=== PATIENT | male | born 1965 | race Caucasian/White ===

== ENCOUNTER → 2016-08-09 | Outpatient (REF) | payer BC, OTHER ==
[~2016-08-09] MED LIST: ALLE25CA OR; BISA10SU2 PR; BISA5TA OR; CALC12502 OR; COLA100C2 OR; ECOT325T5 OR; FERR325T OR; GLUC500T3 OR; LISI20TA5 OR; MILKSUS OR; OXYC10TA97 OR; PAIN325T OR; PERC5TAB8 OR; PERC7.5T8 OR; SENN8.6T5 OR; benadryl TOP; gleevec OR; kenalog TOP; xarelto OR
== END ==
LOC: M LAB REF 12:21
PROVIDERS: ATTEND Internal Medicine Medical Oncology
DX: C92.10 Chronic myeloid leukemia, BCR/ABL-positive, not having achieved remission (principal)

== ENCOUNTER → 2016-09-17 | Outpatient (CLI) | payer BC, OTHER ==
[~2016-09-17] VITALS: Ht 182.9 cm; Wt 96.2 kg
[~2016-09-17] MED LIST changes: +LIDOCAINE 2% INJ 100 MG/5 ML SDV (FOR ANES.) As Ordered ONE; +LISI40TAB PO; +NS 1,000 ML IV SCH; +PROPOFOL 200 MG/20 ML VIAL As Ordered ONE; +TASI150C PO
--- NOTE | 2016-09-17 08:02 | ROOR ---
Patient Name: Dusty Arredondo Procedure Date: 09/17/2016 7:29 AM Date of : 1965 Age: 51 Room: [facility] Gender: Male Note Status: Finalized Procedure: Colonoscopy to Cecum + Biopsy Polypectomy Indications: Screening for colorectal malignant neoplasm Providers: Ap Kincaid MD Referring MD: BONITA HERMOSILLO MD Requesting Provider: Medicines: Monitored Anesthesia Care Complications: No immediate complications. Procedure: Pre-Anesthesia Assessment: - The heart rate, respiratory rate, oxygen saturations, blood pressure, adequacy of pulmonary ventilation, and response to care were monitored throughout the procedure. The Colonoscope was introduced through the anus and advanced to the cecum, identified by appendiceal orifice and ileocecal valve. The colonoscopy was performed without difficulty. The patient tolerated the procedure well. The quality of the bowel preparation was excellent. Findings: The perianal and digital rectal examinations were normal. Non-bleeding internal hemorrhoids were found during retroflexion. The hemorrhoids were small and Grade I (internal hemorrhoids that do not prolapse). Scattered small-mouthed diverticula were found in the recto-sigmoid colon, sigmoid colon and descending colon. A medium polyp was found in the cecum. The polyp was carpet-like. The polyp was removed with a jumbo cold forceps. Resection and retrieval were complete. The exam was otherwise without abnormality on direct and retroflexion views. Impression: - Non-bleeding internal hemorrhoids. - Diverticulosis in the recto-sigmoid colon, in the sigmoid colon and in the descending colon. - One medium polyp in the cecum, removed with a jumbo cold forceps. Resected and retrieved. - The exam was otherwise normal to the cecum. Recommendation: - Patient has a contact number available for emergencies. The signs and symptoms of potential delayed complications were discussed with the patient. Return to normal activities tomorrow. Written discharge instructions were provided to the patient. - High fiber diet. - Discharge patient to home. - Continue present medications. - Await pathology results. - Telephone GI clinic for pathology results in 1 week. - Repeat colonoscopy in 1 year for surveillance based on pathology results. - Return to referring physician. - The findings and recommendations were discussed with the patient's family. Ap Kincaid MD Ap Kincaid MD 09/17/2016 8:01:40 AM This report has been signed electronically. Number of Addenda: 0 Note Initiated On: 09/17/2016 7:29 AM Estimated Blood Loss: Estimated blood loss: none.
[2016-09-17 08:20] VITALS: BP 135/96
== END | disposition home or self-care (01) ==
LOC: M OPP 06:45
PROVIDERS: ATTEND Internal Medicine Gastroenterology
DX: Z12.11 Encounter for screening for malignant neoplasm of colon (principal); D12.0 Benign neoplasm of cecum; K64.0 First degree hemorrhoids; K57.30 Diverticulosis of large intestine without perforation or abscess without bleeding; I10 Essential (primary) hypertension; C92.90 Myeloid leukemia, unspecified, not having achieved remission; Z92.21 Personal history of antineoplastic chemotherapy; F17.220 Nicotine dependence, chewing tobacco, uncomplicated; Z79.899 Other long term (current) drug therapy

== ENCOUNTER → 2016-11-10 | Outpatient (REF) | payer OTHER, BC ==
[~2016-11-10] MED LIST changes: -LIDOCAINE 2% INJ 100 MG/5 ML SDV (FOR ANES.) As Ordered ONE; -NS 1,000 ML IV SCH; -PROPOFOL 200 MG/20 ML VIAL As Ordered ONE
== END ==
LOC: M LAB REF 17:23
PROVIDERS: ATTEND Internal Medicine Medical Oncology
DX: C92.11 Chronic myeloid leukemia, BCR/ABL-positive, in remission (principal)

== ENCOUNTER → 2017-03-03 | Outpatient (REF) | payer OTHER, BC ==
[2017-03-03 14:02] LABS: AMYLASE 42 U/L (25-115)
== END ==
LOC: M LAB REF 08:51
PROVIDERS: ATTEND Internal Medicine Medical Oncology
DX: C92.10 Chronic myeloid leukemia, BCR/ABL-positive, not having achieved remission (principal)

== ENCOUNTER → 2017-08-10 | Outpatient (REF) | payer OTHER, BC ==
[2017-08-10 10:32] LABS: AMYLASE 57 U/L (25-115)
[2017-08-10 10:32] LABS: LIPASE 100 U/L (73-393)
== END ==
LOC: M LAB REF 09:51
DX: C92.90 Myeloid leukemia, unspecified, not having achieved remission (principal)

== ENCOUNTER → 2017-09-19 | Outpatient (REF) | payer OTHER, BC ==
[2017-09-19 14:04] LABS: LIPASE 93 U/L (73-393)
[2017-09-19 14:04] LABS: AMYLASE 53 U/L (25-115)
== END ==
LOC: M LAB REF 13:07
DX: C92.11 Chronic myeloid leukemia, BCR/ABL-positive, in remission (principal)

== ENCOUNTER → 2017-12-15 | Outpatient (REF) | payer OTHER, BC ==
[2017-12-15 14:07] LABS: LIPASE 92 U/L (73-393)
[2017-12-15 14:07] LABS: AMYLASE 55 U/L (25-115)
== END ==
LOC: M LAB REF 13:06
DX: C92.11 Chronic myeloid leukemia, BCR/ABL-positive, in remission (principal)

== ENCOUNTER → 2018-04-03 | Outpatient (REF) | payer OTHER, BC ==
[2018-04-03 14:41] LABS: LIPASE 129 U/L (73-393)
[2018-04-03 14:41] LABS: AMYLASE 57 U/L (25-115)
== END ==
LOC: M LAB REF 13:03
DX: C93.10 Chronic myelomonocytic leukemia not having achieved remission (principal)

== ENCOUNTER → 2018-06-16 | Outpatient (CLI) | payer OTHER, BC ==
[2018-06-16 10:00] LABS: ANION GAP 7 MEQ/L (8-16); BLOOD UREA NITROGEN 21 MG/DL (7-18); CARBON DIOXIDE LEVEL 26 MEQ/L (21-32); CHLORIDE LEVEL 108 MEQ/L (98-107); CHOLESTEROL LEVEL 185 MG/DL (<200); CREATININE FOR GFR 1.33 MG/DL (0.70-1.30); GLOMERULAR FILTRATION RATE > 60.0 (>56); GLUCOSE, FASTING 95 MG/DL (70-100); HDL CHOLESTEROL 68 MG/DL (>40); LDL CHOLESTEROL 100 MG/DL (<100); NON-HDL-C 117 MG/DL; POTASSIUM SERUM 4.6 MEQ/L (3.5-5.1); SODIUM LEVEL 141 MEQ/L (136-145); TRIGLYCERIDES LEVEL 85 MG/DL (<150)
== END ==
LOC: M WUC 08:14
DX: I10 Essential (primary) hypertension (principal)
CPT/HCPCS: 80061

== ENCOUNTER → 2018-08-08 | Outpatient (CLI) | payer OTHER, BC ==
[~2018-08-08] MED LIST changes: +BOSU500T OR; +LISI40TA PO; -LISI40TAB PO; +LOSA100T8 PO
[2018-08-08 12:24] LABS: BLOOD UREA NITROGEN 17 MG/DL (7-18); CARBON DIOXIDE LEVEL 24 MEQ/L (21-32); CHLORIDE LEVEL 108 MEQ/L (98-107); GLOMERULAR FILTRATION RATE > 60.0 (>56); GLUCOSE, FASTING 87 MG/DL (70-100); SODIUM LEVEL 141 MEQ/L (136-145)
== END ==
LOC: M WUC 09:49
PROVIDERS: ATTEND Physician Assistant
DX: I10 Essential (primary) hypertension (principal)

== ENCOUNTER → 2020-07-17 | Outpatient (CLI) | payer BC, OTHER ==
[~2020-07-17] MED LIST changes: +AMLO1TAB25 PO; +BOSU500T PO
--- NOTE | 2020-07-17 12:11 | REP ---
INDICATION: COUGH COMPARISON: None. TECHNIQUE: PA and lateral. FINDINGS: The mediastinum and cardiac silhouette are normal. The lung jose are clear and without acute consolidation, effusion, or pneumothorax. The skeletal structures are intact and normal. IMPRESSION: No acute cardiopulmonary process. <Electronically signed by Damon Bui > 07/17/20 [id number]
== END ==
LOC: M RAD 11:48
PROVIDERS: ATTEND Nurse Practitioner Family
DX: R05 Cough (principal)

== ENCOUNTER → 2021-03-25 | Outpatient (CLI) | payer BC, OTHER ==
[~2021-03-25] MED LIST changes: +BOSU400T PO; -LISI40TA PO; +LISI40TA4 PO
--- NOTE | 2021-03-25 10:09 | REP ---
INDICATION: INCREASED LFT'S / CREATINE TECHNIQUE: Real time B-mode dobbins scale ultrasound examination using curved array transducer. FINDINGS: Liver is hyperechoic suggesting fatty infiltration without focal hepatic lesion. Spleen is mildly enlarged measuring 12.0 x 11.4 x 4.3 cm (SI 588). No focal splenic lesion identified. Gallbladder demonstrates small nonshadowing echogenic focus suggesting polyp. No gallstones, wall thickening or pericholecystic fluid. No biliary ductal dilatation is appreciated and the common bile duct measures 4.5 mm diameter. Pancreas is unremarkable. The bilateral kidneys are normal in reniform shape without hydronephrosis or obvious abnormality. Right kidney measures 11.5 x 5.1 x 4.5 cm. Left kidney measures 11.3 x 4.9 x 5.2 cm. Abdominal aorta is normal and measures 2.3 cm maximal diameter. No ascites. IMPRESSION: 1. Hepatosteatosis. 2. Spleen is minimally enlarged without focal abnormality. 3. Small suspected benign gallbladder polyp. <Electronically signed by Damon Bui > 03/25/21 [id number]
== END ==
LOC: M RAD 09:04
PROVIDERS: ATTEND Internal Medicine Medical Oncology
DX: R94.5 Abnormal results of liver function studies (principal); K76.0 Fatty (change of) liver, not elsewhere classified

== ENCOUNTER → 2021-08-10 | Outpatient (CLI) | payer BC, OTHER | LOC: M LABSMTC 09:26 | PROVIDERS: ATTEND Anesthesiology | DX: Z01.812 Encounter for preprocedural laboratory examination (principal); Z20.822 Contact with and (suspected) exposure to COVID-19 ==

== ENCOUNTER 2021-08-14 10:09 | Day surgery (SDC) | payer BC, OTHER ==
[~2021-08-14] VITALS: Ht 182.9 cm; Wt 100.2 kg
[~2021-08-14 10:09] MED LIST changes: +NS 1,000 ML IV ONE
[2021-08-14] MEDS ORDERED: propofoL 200 MG/20 ML VIAL As Ordered ONE ×2 (12:11→12:19)
[2021-08-14] MEDS ORDERED: LIDOCAINE 2% 100MG/5ML SDV (FOR ANES.) As Ordered ONE (12:11)
[2021-08-14 12:59] VITALS: BP 164/102
== END 2021-08-14 13:01 | disposition home or self-care (01) ==
LOC: M OPP 10:09
PROVIDERS: ATTEND Internal Medicine Gastroenterology
DX: Z12.11 Encounter for screening for malignant neoplasm of colon (principal); Z86.010 Personal history of colon polyps; K57.30 Diverticulosis of large intestine without perforation or abscess without bleeding; K64.8 Other hemorrhoids; C92.10 Chronic myeloid leukemia, BCR/ABL-positive, not having achieved remission; Z92.21 Personal history of antineoplastic chemotherapy; Z79.899 Other long term (current) drug therapy

== ENCOUNTER → 2022-05-17 | Outpatient (CLI) | payer BC, OTHER ==
[~2022-05-17] MED LIST changes: +BOSU100T PO; -NS 1,000 ML IV ONE
== END ==
LOC: M WHC 10:04
PROVIDERS: ATTEND Internal Medicine Medical Oncology
DX: I87.2 Venous insufficiency (chronic) (peripheral) (principal)

== ENCOUNTER → 2022-07-13 | Outpatient (POV) | payer BC, OTHER ==
[~2022-07-13] VITALS: Ht 185.4 cm; Wt 97.7 kg
[2022-07-13 08:15] VITALS: BP 168/90
== END ==
LOC: M IRPOV 07:56
PROVIDERS: ATTEND Radiology Diagnostic Radiology
DX: R94.4 Abnormal results of kidney function studies (principal); I10 Essential (primary) hypertension; Z79.899 Other long term (current) drug therapy; Z86.16 Personal history of COVID-19; Z92.21 Personal history of antineoplastic chemotherapy

== ENCOUNTER → 2022-07-26 | Outpatient (CLI) | payer BC, OTHER | LOC: M LABSMTC 10:34 | PROVIDERS: ATTEND Anesthesiology | DX: Z01.812 Encounter for preprocedural laboratory examination (principal); Z11.52 Encounter for screening for COVID-19 ==

== ENCOUNTER → 2022-07-28 | Outpatient (CLI) | payer BC, OTHER ==
[~2022-07-28] MED LIST changes: +LIDOCAINE 1% MDV 20ML VIAL As Ordered ONE; +MIDAZOLAM INJ 2MG/2ML VIAL As Ordered ONE; +NS 1,000 ML IV SCH; +diphenhydrAMINE 50MG/ML VIAL As Ordered ONE; +fentaNYL 100 MCG/2 ML INJECTION As Ordered ONE
[2022-07-28 15:00] VITALS: BP 124/68
== END ==
LOC: M IRPRO 11:08
PROVIDERS: ATTEND Radiology Diagnostic Radiology
DX: R79.89 Other specified abnormal findings of blood chemistry (principal); C92.10 Chronic myeloid leukemia, BCR/ABL-positive, not having achieved remission
CPT/HCPCS: 50200; 77012; 99152; 99153; J1200; J2250; J3010

== ENCOUNTER → 2023-02-22 | Outpatient (CLI) | payer BC, OTHER ==
[~2023-02-22] MED LIST changes: -LIDOCAINE 1% MDV 20ML VIAL As Ordered ONE; -MIDAZOLAM INJ 2MG/2ML VIAL As Ordered ONE; -NS 1,000 ML IV SCH; -diphenhydrAMINE 50MG/ML VIAL As Ordered ONE; -fentaNYL 100 MCG/2 ML INJECTION As Ordered ONE
[2023-02-22 14:14] LABS: ALBUMIN 4.2 G/DL (3.2-5.2); BILIRUBIN,TOTAL 0.7 MG/DL (0.3-1.2); CALCIUM LEVEL 9.5 MG/DL (8.5-10.1); CHOLESTEROL RISK RATIO 2.62 (<5); CREATININE FOR GFR 1.61 MG/DL (0.70-1.30); GLOMERULAR FILTRATION RATE 47.3 (>56); HDL CHOLESTEROL 58.6 MG/DL (>40); LDL CHOLESTEROL 84.4 MG/DL (<100); NON-HDL-C 95.4 MG/DL; POTASSIUM SERUM 4.5 MMOL/L (3.5-5.1); TOTAL PROTEIN 7.4 G/DL (5.7-8.2)
== END ==
LOC: M PLALAB 09:12
PROVIDERS: ATTEND Nurse Practitioner Family
DX: I10 Essential (primary) hypertension (principal)

== ENCOUNTER → 2023-10-19 | Outpatient (CLI) | payer BC ==
[2023-10-19 14:28] LABS: BASO # 0.1 10^3/uL (0.0-0.2); BASO % 1.1 % (0.0-1.0); EOS # 0.4 10^3/uL (0.0-0.5); EOS % 5.5 % (0.0-3.0); HEMATOCRIT 40.4 % (42.0-52.0); HEMOGLOBIN 13.5 g/dl (13.5-17.5); LYMPH # 2.6 10^3/uL (1.5-5.0); LYMPH % 31.6 % (24.0-44.0); MEAN CORPUSCULAR HEMOGLOBIN 30.8 pg (27.0-33.0); MEAN CORPUSCULAR HGB CONC 33.4 g/dl (32.0-36.5); MONO # 0.9 10^3/uL (0.0-0.8); MONO % 10.7 % (2.0-8.0); NEUTROPHILS # 4.1 10^3/uL (1.5-8.5); NEUTROPHILS % 50.9 % (36.0-66.0); PLATELET COUNT, AUTOMATED 206 10^3/uL (150-450); RED BLOOD COUNT 4.39 10^6/uL (4.30-6.10); WHITE BLOOD COUNT 8.1 10^3/uL (4.0-10.0)
[2023-10-19 14:49] LABS: CALCIUM LEVEL 9.2 MG/DL (8.5-10.1); CREATININE FOR GFR 1.42 MG/DL (0.70-1.30); GLOMERULAR FILTRATION RATE 54.5 (>56); POTASSIUM SERUM 4.7 MMOL/L (3.5-5.1)
== END ==
LOC: M PLALAB 11:04
PROVIDERS: ATTEND Nurse Practitioner Family
DX: Z01.818 Encounter for other preprocedural examination (principal)

== ENCOUNTER 2023-11-08 13:53 | Day surgery (SDC) | payer BC ==
[~2023-11-08] VITALS: Ht 185.4 cm; Wt 98.9 kg
[~2023-11-08 13:53] MED LIST changes: +LOSA100T46 PO
[2023-11-08] MEDS: LR 1,000 ML IV SCH (14:20)
[2023-11-08] MEDS ORDERED: ONDANSETRON 4MG 2ML VIAL As Ordered ONE (16:22)
[2023-11-08] MEDS ORDERED: MIDAZOLAM INJ 2MG/2ML VIAL As Ordered ONE (16:22)
[2023-11-08] MEDS ORDERED: KETAMINE HCL 200MG/20ML VIAL As Ordered ONE (16:22)
[2023-11-08] MEDS ORDERED: propofoL 200 MG/20 ML VIAL As Ordered ONE (16:22)
[2023-11-08] MEDS ORDERED: LIDOCAINE 2% 100MG/5ML SDV (FOR ANES.) As Ordered ONE (16:22)
[2023-11-08] MEDS: POVIDONE-IODINE 5% OPHTH PREP SOL 30ML As Ordered ONE (16:40)
[2023-11-08] MEDS: ceFAZolin SOD 2 GM in IV 1 EA IV ONE (16:41)
[2023-11-08] MEDS ORDERED: ACETAMINOPHEN 1000MG 100ML IV BAG As Ordered ONE (16:46)
[2023-11-08] MEDS: LIDOCAINE W/EPINEPHRINE 1% 20ML VIAL As Ordered ONE (16:50)
[2023-11-08] MEDS: BACITRACIN OINTMENT 30GM TUBE As Ordered ONE (16:50)
[2023-11-08 17:46] VITALS: BP 174/82; TEMP 97.6; O2SAT 97
== END 2023-11-08 17:50 | disposition home or self-care (01) ==
LOC: M SDC 13:53
PROVIDERS: ATTEND Plastic Surgery Surgery of the Hand
DX: D17.79 Benign lipomatous neoplasm of other sites (principal); I10 Essential (primary) hypertension; Z79.899 Other long term (current) drug therapy; Z85.6 Personal history of leukemia; Z92.21 Personal history of antineoplastic chemotherapy; F17.220 Nicotine dependence, chewing tobacco, uncomplicated

== ENCOUNTER → 2025-03-12 | Outpatient (REF) | payer BC ==
[~2025-03-12] MED LIST changes: +LISI40TA10 PO; -LISI40TA4 PO
[2025-03-12 18:02] LABS: APPEARANCE, URINE TURBID (CLEAR); BACTERIA, URINE AUTO NEGATIVE (NEGATIVE); BILIRUBIN, URINE AUTO NEGATIVE (NEGATIVE); BLOOD, URINE BLOOD NEGATIVE (NEGATIVE); GLUCOSE, URINE (UA) AUTO NEGATIVE (NEGATIVE); KETONE, URINE AUTO NEGATIVE (NEGATIVE); LEUKOCYTE ESTERASE, URINE AUTO NEGATIVE (NEGATIVE); MUCUS, URINE SMALL (NEGATIVE); NITRITE, URINE AUTO NEGATIVE (NEGATIVE); PROTEIN, URINE AUTO NEGATIVE (NEGATIVE); RBC, URINE AUTO 0 /HPF (0-3); SPECIFIC GRAVITY URINE AUTO 1.019 (1.002-1.035); SQUAMOUS EPITHELIAL CELL UR AU 0 /HPF (0-6); UROBILINOGEN, URINE AUTO 0.2 mg/dL (0.0-2.0); WBC, URINE AUTO 1 /HPF (0-3)
== END ==
LOC: M LAB REF 17:24
PROVIDERS: ATTEND Nurse Practitioner Family
DX: Z01.818 Encounter for other preprocedural examination (principal)